=== PATIENT | female | born 1980 | race African-American/Black ===

== ENCOUNTER 2017-04-10 08:42 | Emergency (ER) | payer SELFPAY ==
[~2017-04-10] VITALS: Ht 149.9 cm; Wt 87.0 kg
[~2017-04-10 08:42] MED LIST: ALEVE220 MG OR; AMOXICILLIN500 MG OR; AMOXICILLIN500 MG PO; ASPIRIN EC81 MG PO; ASPIRIN325 MG PO; ATENOLOL25 MG PO; BACTRIM DS1 TAB PO; CIPRO500 MG OR; FIORICE1 PO; FIORICET PO; FLEXERIL OR; FLEXERIL PO; HYDROCHLORO25 MG/TAB PO; HYDROCHLOROT12.5 MG PO; LIPITOR20 MG PO; LISINOP/HCTZ1 TAB PO; LISINOPRIL10 MG PO; LORTAB 1010 MG PO; LORTAB 5 OR; LORTAB5 OR; LORTAB5 PO; METOPROL TAR50 MG PO; NAPROSYN500 MG OR; NAPROSYN500 MG PO; NO MEDS; PENICILLN VK500 MG PO; ROBITUSSIN AC10 ML OR; ROBITUSSIN AC10 ML PO; TRAMADOL HCL50 MG PO; TYLENOL500 MG OR; ULTRAM50 M1 OR; ULTRAM50 M1 PO; VEETIDS500 MG OR; ZOFRAN4 M1 OR
[2017-04-10 08:45] VITALS: BP 153/103
[2017-04-10] MEDS ORDERED: LISINOPRIL20 MG PO (08:51)
[2017-04-10] MEDS ORDERED: TRAMADOL HYDROC50 MG PO (09:06)
== END 2017-04-10 09:22 | disposition home or self-care (01) | DRG 103 ==
LOC: ED 08:42
DX: R51 Headache (principal)

== ENCOUNTER 2017-10-29 23:24 | Emergency (ER) | payer SELFPAY ==
[~2017-10-29] VITALS: Ht 149.9 cm; Wt 92.4 kg
[~2017-10-29 23:24] MED LIST changes: +LISINOPRIL20 MG PO; +TRAMADOL HYDROC50 MG PO
[2017-10-29] MEDS ORDERED: LISINOP/HCTZ1 TAB PO (23:38)
[2017-10-29] MEDS ORDERED: ASPIRIN CHEWABL81 MG PO (23:39)
[2017-10-30 00:13] LABS: HEMATOCRIT 34.3 % (37.0-47.0); HEMOGLOBIN 10.9 g/dl (12.0-16.0); IMMATURE GRANULOCYTES 0.3 % (0.0-1.0); MEAN CELL VOLUME 87.1 fL CALC (80.0-100.0); MEAN CORPUSCULAR HGB 27.7 pG CALC (26.0-32.0); MEAN CORPUSCULAR HGB CONC 31.8 g/L CALC (32.0-36.0); NEUT# 11.8 thou/uL (2.00-7.15); RED BLOOD COUNT 3.94 mill/uL (4.20-5.60); RED CELL DISTRI WIDTH 13.2 % (11.5-15.5)
[2017-10-30] MEDS ORDERED: BACTRIM DS1 TAB PO (01:13)
[2017-10-30 01:40] VITALS: BP 131/85
== END 2017-10-30 01:40 | disposition home or self-care (01) | DRG 153 ==
LOC: ED 23:24
PROVIDERS: Family Medicine
DX: J01.90 Acute sinusitis, unspecified (principal); I10 Essential (primary) hypertension; F17.210 Nicotine dependence, cigarettes, uncomplicated

== ENCOUNTER 2018-04-10 20:24 | Emergency (ER) | payer SELFPAY ==
[~2018-04-10] VITALS: Ht 149.9 cm; Wt 87.1 kg
[~2018-04-10 20:24] MED LIST changes: +ASPIRIN CHEWABL81 MG PO
[2018-04-10] MEDS ORDERED: NAPROSYN500 MG PO (21:30)
[2018-04-10 21:40] VITALS: BP 131/74
== END 2018-04-10 21:40 | disposition home or self-care (01) | DRG 556 ==
LOC: ED 20:24
DX: M79.10 Myalgia, unspecified site (principal); M94.0 Chondrocostal junction syndrome [Tietze]; I10 Essential (primary) hypertension

== ENCOUNTER 2019-06-21 | Emergency (ER) | payer SELFPAY | END 2019-06-21 16:13 | disposition left against medical advice (07) | DRG 951 | DX: Z91.19 Patient's noncompliance with other medical treatment and regimen (principal) ==

== ENCOUNTER 2019-07-31 | Emergency (ER) | payer SELFPAY ==
[2019-07-31] MEDS ORDERED: PREDNISONE10 MG PO (18:18)
[2019-07-31] MEDS ORDERED: TESSALON PERLE100 MG PO (18:18)
[2019-07-31] MEDS ORDERED: TAM75CAP PO (18:18)
== END 2019-07-31 18:50 | disposition home or self-care (01) | DRG 153 ==
DX: J11.1 Influenza due to unidentified influenza virus with other respiratory manifestations (principal); I10 Essential (primary) hypertension; F17.210 Nicotine dependence, cigarettes, uncomplicated

== ENCOUNTER 2022-10-14 12:56 | Emergency (ER) | payer SELFPAY ==
[~2022-10-14] VITALS: Ht 149.9 cm; Wt 89.4 kg
[~2022-10-14 12:56] MED LIST changes: +PREDNISONE10 MG PO; +TAM75CAP PO; +TESSALON PERLE100 MG PO
[2022-10-14 13:06] VITALS: BP 137/78
[2022-10-14 13:31] VITALS: BP 120/75
[2022-10-14 14:01] VITALS: BP 130/71
[2022-10-14 14:44] VITALS: BP 130/71
== END 2022-10-14 14:59 | disposition home or self-care (01) | DRG 556 ==
LOC: ED 12:56
DX: M79.672 Pain in left foot (principal); I10 Essential (primary) hypertension; F17.210 Nicotine dependence, cigarettes, uncomplicated

== ENCOUNTER 2024-08-11 05:31 | Emergency (ER) | payer SELFPAY ==
[~2024-08-11] VITALS: Ht 149.9 cm; Wt 92.0 kg
[2024-08-11 05:58] VITALS: BP 145/83
[2024-08-11] MEDS ORDERED: PROMETHAZINE HCL 25 MG/ML AMP IV ONE (06:00)
[2024-08-11] MEDS ORDERED: DiphenhydrAMINE HCL 50 MG/ML SDV IV ONE (06:00)
[2024-08-11] MEDS ORDERED: ACETAMINOPHEN 500 MG TAB PO ONE (06:00)
[2024-08-11] MEDS ORDERED: SODIUM CHLORIDE 0.9% 1,000 ML IV ONE (06:00)
[2024-08-11] MEDS ORDERED: KETOROLAC TROMETHAMINE 30 MG/ML SDV IV ONE (06:00)
[2024-08-11] MEDS ORDERED: LISINOP/HCTZ1 TAB PO (06:03)
[2024-08-11 06:12] VITALS: BP 146/88
[2024-08-11 06:15] VITALS: BP 137/76
[2024-08-11 06:20] LABS: BASO% 0.1 % (0-3); EOS% 1.8 % (0-8); HEMATOCRIT 37.7 % (37.0-47.0); HEMOGLOBIN 11.6 g/dl (12.0-16.0); IMMATURE GRANULOCYTES 0.1 % (0.0-5.0); LYMPH% 32.8 % (15-41); MEAN CELL VOLUME 87.7 fL CALC (80.0-100.0); MEAN CORPUSCULAR HGB CONC 30.8 g/dL CAL (32.0-36.0); MONO% 5.9 % (2-13); NEUT# 4.68 thou/uL (2.00-7.15); NEUT% 59.3 % (42-76); RED BLOOD COUNT 4.3 mill/uL (4.20-5.60); RED CELL DISTRI WIDTH 12.8 % (11.5-15.5)
[2024-08-11 06:30] VITALS: BP 135/75
[2024-08-11 06:36] LABS: ALBUMIN 4.3 g/dL (3.2-5.0); CREATININE 0.8 mg/dL (0.5-1.0); POTASSIUM 3.7 mmol/l (3.5-5.1); TOTAL PROTEIN 8.1 g/dL (6.3-8.2)
[2024-08-11 06:41] LABS: BILIRUBIN, TOTAL 0.5 mg/dL (0.02-1.3)
[2024-08-11 06:46] VITALS: BP 148/92
[2024-08-11 07:57] VITALS: BP 148/92
== END 2024-08-11 08:06 | disposition home or self-care (01) | DRG 103 ==
LOC: ED 05:31
PROVIDERS: Family Medicine
DX: R51.9 Headache, unspecified (principal); I10 Essential (primary) hypertension; F17.210 Nicotine dependence, cigarettes, uncomplicated
CPT/HCPCS: J1100; J1200; J2550